=== PATIENT | male | born 1995 ===

== ENCOUNTER 2017-09-24 14:12 | Emergency (ER) | payer OTHER ==
[2017-09-24 14:35] VITALS: BP 130/89; PULSE 88; RESP 18; TEMP 98.5; O2SAT 98
[2017-09-24] MEDS ORDERED: Naproxen 500 MG TAB PO ONE ×2 (14:44→14:50)
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
--- NOTE | 2017-09-24 16:18 | RAD ---
Date of service: 09/24/2017 PROCEDURE: Cervical Spine Radiographs. HISTORY: Pain. COMPARISON: None. FINDINGS: BONES: Alignment maintained. No fracture. Dens Intact. DISC SPACES: Normal. SOFT TISSUES: Normal. No prevertebral soft tissue swelling. OTHER FINDINGS: None. IMPRESSION: Normal cervical spine radiographs
--- NOTE | 2017-09-24 16:19 | RAD ---
Date of service: 09/24/2017 HISTORY: pain COMPARISON: No prior. FINDINGS: BONES: Alignment maintained. No fracture. DISC SPACES: Normal. SOFT TISSUES: Normal. OTHER FINDINGS: None. IMPRESSION: Normal radiographs of the thoracic spine.
--- NOTE | 2017-09-24 16:19 | RAD ---
Date of service: 09/24/2017 PROCEDURE: Radiographs of the Lumbar Spine. HISTORY: pain COMPARISON: No prior. FINDINGS: BONES: Normal alignment. No listhesis. No fracture. DISC SPACES: Unremarkable. OTHER FINDINGS: None. IMPRESSION: Unremarkable radiographs of the lumbar spine.
== END 2017-09-24 16:17 | disposition home or self-care (01) ==
LOC: H.ER 14:12
DX: S13.4XXA Sprain of ligaments of cervical spine, initial encounter (principal); V43.52XA Car driver injured in collision with other type car in traffic accident, initial encounter; Y92.410 Unspecified street and highway as the place of occurrence of the external cause